=== PATIENT | female | born 1955 | race Caucasian/White ===

== ENCOUNTER → 2019-12-12 | Day surgery (SDC) | payer OTHER ==
[~2019-12-12] VITALS: Ht 154.9 cm; Wt 83.9 kg
[2019-12-12 07:54] VITALS: BP 103/71
[2019-12-12 13:08] VITALS: BP 113/71
== END | disposition home or self-care (01) ==
LOC: OR 06:35
PROVIDERS: ATTEND Internal Medicine
DX: R19.4 Change in bowel habit (principal); K21.9 Gastro-esophageal reflux disease without esophagitis; K29.50 Unspecified chronic gastritis without bleeding; J05.10 Acute epiglottitis without obstruction; E03.9 Hypothyroidism, unspecified; I10 Essential (primary) hypertension; M06.9 Rheumatoid arthritis, unspecified; K27.9 Peptic ulcer, site unspecified, unspecified as acute or chronic, without hemorrhage or perforation; E66.9 Obesity, unspecified; Z68.35 Body mass index [BMI] 35.0-35.9, adult; Z88.0 Allergy status to penicillin; Z88.5 Allergy status to narcotic agent; Z86.010 Personal history of colon polyps; Z79.82 Long term (current) use of aspirin; Z79.899 Other long term (current) drug therapy; Z90.49 Acquired absence of other specified parts of digestive tract; Z80.42 Family history of malignant neoplasm of prostate; Z80.3 Family history of malignant neoplasm of breast
CPT/HCPCS: 43235; 45378; 99153; J1200; J1610; J2250; J2310; J2405; J3010; J3490; U0003-CS